=== PATIENT | male | born 1960 | race Two or more races ===

== ENCOUNTER 2019-08-15 06:00 | Day surgery (SDC) | payer OTHER ==
[~2019-08-15 06:00] MED LIST: CARVEDILOL12.5 MG PO; ZESTORETIC 10-1 EACH PO
[2019-08-15] MEDS ORDERED: PERCOCET 5-3251 EACH PO (19:06)
[2019-08-15] MEDS ORDERED: COLACE100 MG PO (19:07)
[2019-08-15] MEDS ORDERED: NEURONTIN600 M1 PO (19:07)
== END 2019-08-15 22:50 | disposition home or self-care (01) ==
LOC: CIR.AMB 06:00
DX: K40.31 Unilateral inguinal hernia, with obstruction, without gangrene, recurrent (principal); K42.0 Umbilical hernia with obstruction, without gangrene

== ENCOUNTER 2025-05-02 09:13 | Emergency (ER) | payer OTHER ==
[~2025-05-02] VITALS: Ht 167.6 cm; Wt 78.0 kg
[~2025-05-02 09:13] MED LIST changes: +COLACE100 MG PO; +NEURONTIN600 M1 PO; +PERCOCET 5-3251 EACH PO
[2025-05-02] MEDS ORDERED: COZAAR50 MG PO (09:28)
[2025-05-02] MEDS ORDERED: KETOROLAC TROMETHAMINE 60 MG VIAL IM ONE ×2 (10:30→10:34)
[2025-05-02] MEDS ORDERED: ORPHENADRINE CITRATE 30 MG/ML AMPUL IM ONE (10:30)
[2025-05-02] MEDS ORDERED: ORPHENADRINE CITRATE 30 MG/ML AMPUL ONE (10:34)
[2025-05-02] MEDS ORDERED: DICLOFENAC SODI75 MG PO (14:19)
[2025-05-02] MEDS ORDERED: NORFLEX100MG PO (14:19)
== END 2025-05-02 14:59 | disposition home or self-care (01) ==
LOC: ER 09:14
DX: S50.02XA Contusion of left elbow, initial encounter (principal); S70.02XA Contusion of left hip, initial encounter; S80.02XA Contusion of left knee, initial encounter; W11.XXXA Fall on and from ladder, initial encounter; Y93.89 Activity, other specified; Y92.89 Other specified places as the place of occurrence of the external cause; Y99.9 Unspecified external cause status; I10 Essential (primary) hypertension